=== PATIENT | female | born 1975 | race African-American/Black ===

== ENCOUNTER 2018-03-10 17:28 | Emergency (ER) | payer OTHER ==
[~2018-03-10] VITALS: Ht 160 cm; Wt 71.2 kg
--- NOTE | 2018-03-10 20:07 | ED GENERAL ADULT ---
History of Present Illness General Chief Complaint: Hand or Wrist Injury Stated Complaint: R HAND/WRIST PAIN SHOOTING UP ARM, NO INJURY Source: patient Exam Limitations: no limitations Vital Signs & Intake/Output Vital Signs & Intake/Output Vital Signs Date Time Temp Pulse Resp B/P B/P Pulse O2 O2 Flow FiO2 Mean Ox Delivery Rate 03/10 2140 97.5 80 18 141/87 99 Room Air 03/10 1739 97.7 86 18 163/106 98 Room Air Allergies Coded Allergies: latex (Intermediate, RASH 03/10/18) MDX - Shellfish (SHELLFISH) (FROM ALLERGY TESTING-ALSO GOT BLISTERS FROM A TYPE OF SHRIMP 01/12/13) MDX - Shrimp (Shrimp) (BLISTERS 02/20/13) Reconcile Medications Naproxen (Naprosyn) 500 MG TABLET 1 TAB PO BID PRN pain Triage Note: PT TO ER C/C SHOOTING PAIN FROM RIGHT THUMB SHOOTING UP WRIST X 2 DAYS, "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 DENIES KNOWN INJURY OR TRAUMA. HAS HAD SIMILAR PAIN IN PAST. Triage Nurses Notes Reviewed? yes Onset: Gradual Duration: day(s): Timing: constant : No Patient currently breastfeeds: No HPI: 42 y/o right hand dominant female with h/o HTN, asthma, anemia presenting with right hand/wrist pain x3 days. Reports pain/stiffness in lateral wrist that radiates into her thumb and index finger. Endorses associated intermittent paresthesias in the same distribution. Pain is worse when trying to use the hand to open jars, etc. Has not tried anything for pain relief. No trauma. Denies fevers, swelling, redness. Has had similar pain in the past that usually self resolves after a few days. (Guerline Arauz) Past History Travel History Traveled to [place] past 21 day No Medical History Any Pertinent Medical History? see below for history Cardiovascular: hypertension Respiratory: asthma Blood Disorders: anemia Surgical History Surgical History: non-contributory Psychosocial History What is your primary language Panamanian Tobacco Use: Current Daily Use Daily Tobacco Use Amount/Type: => 5 Cigarettes daily Family History Hx Contributory? No (Guerline Arauz) Review of Systems Review of Systems Constitutional: Reports: no symptoms. EENTM: Reports: no symptoms. Respiratory: Reports: no symptoms. Cardiovascular: Reports: no symptoms. GI: Reports: no symptoms. Genitourinary: Reports: no symptoms. Musculoskeletal: Reports: see HPI. Skin: Reports: no symptoms. Neurological/Psychological: Reports: no symptoms. Hematologic/Endocrine: Reports: no symptoms. Immunologic/Allergic: Reports: no symptoms. (Guerline Arauz) Physical Exam Physical Exam General Appearance: well developed/nourished, no apparent distress, alert, awake , comfortable Head: atraumatic, normal appearance Eyes: Bilateral: normal appearance. Neck: normal inspection Respiratory: normal breath sounds, lungs clear Cardiovascular: regular rate/rhythm Gastrointestinal: soft, non-tender Back: normal inspection Extremities: normal inspection, Right hand: Diffuse TTP over thumb and index finger. No erythema, edema, or deformity. Unrestricted ROM at MCP/PIP/DIP. Sensation intact to m/r/u nerves. 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 Radial pulse 2+. Right wrist: TTP over medial aspect. No erythema or edema. Unrestricted ROM. Sensation intact. Motor strength 5/5. Neurologic/Psych: awake, alert, oriented x 3, normal gait, normal mood/affect Skin: intact, normal color, warm/dry Core Measures ACS in differential dx? No CVA/TIA Diagnosis: No Sepsis Present: No Sepsis Focused Exam Completed? No (Guerline Arauz) Progress Differential Diagnoses I considered the following diagnoses in my evaluation of the patient: [Carpal tunnel syndrome vs tendonitis vs median nerve neuropathy, low concern for flexor tenosynovitis vs septic joint] Plan of Care: X-ray unremarkable. Moderate pain relief after toradol. Placed in wrist brace for comfort and given rx naproxen. Counseled on supportive care. Will f/u with Dr. Daly (PMD) in 2 days. Given strict return precautions. Initial ED EKG: none (Guerline Arauz) Departure Departure Disposition: HOME OR SELF CARE Condition: Stable Clinical Impression Primary Impression: Right hand pain Secondary Impressions: Right wrist pain Referrals: Francia Daly MD (PCP/Family) Additional Instructions: Use naproxen as needed for pain. Follow up with your primary care provider for re-evaluation. Return to the emergency department for any new or worsening symptoms. Departure Forms: Customer Survey General Discharge Information Prescriptions: Current Visit Scripts Naproxen (Naprosyn) 1 TAB PO BID PRN pain #60 TAB (Guerline Arauz) PA/C D REACTOR OPERATOR Co-Sign Statement Statement: ED Attending supervision documentation- [] I saw and evaluated the patient. I have also reviewed all the pertinent lab results and diagnostic results. I agree with the findings and the plan of care as documented in the PA's/C D REACTOR OPERATOR's documentation. [X] I have reviewed the ED Record and agree with the PA's/C D REACTOR OPERATOR's documentation. [] Additions or exceptions (if any) to the PAs/C D REACTOR OPERATOR's note and plan are summarized below: [] (Gina BALDERRAMA,Stalin Turner) Critical Care Note Critical Care Note Critical Care Time: non-applicable (Guerline Arauz)
--- NOTE | 2018-03-10 20:40 | RADIOLOGY REPORT ---
EXAMINATION: XR HAND, RIGHT CLINICAL INFORMATION: Pain and swelling. COMPARISON: None TECHNIQUE: PA, lateral, and oblique views of the right hand. FINDINGS: The bones and soft tissues are normal. No fracture. Alignment is anatomic. Joint spaces are maintained. No erosions or soft tissue calcifications. IMPRESSION: Normal right hand.
[2018-03-10 21:40] VITALS: BP 141/87
[2018-03-10] MEDS ORDERED: NAPROSYN500 M1 PO (21:41)
== END 2018-03-10 21:47 ==
LOC: ERH 17:28
DX: M79.641 Pain in right hand (principal); M25.531 Pain in right wrist
CPT/HCPCS: 73130-RT; 96372; J1885